=== PATIENT | male | born 1985 | race Hispanic/Latino ===

== ENCOUNTER 2017-09-18 06:52 | Emergency (ER) | payer SELFPAY ==
[2017-09-18] MEDS ORDERED: NA CHLORIDE 0.9% 1,000 ML ONE (07:45)
[2017-09-18] MEDS ORDERED: ONDANSETRON 4 MG/2 ML VIAL ONE (07:45)
[2017-09-18] MEDS ORDERED: MECLIZINE HCL 12.5 MG TAB ONE (07:45)
[2017-09-18 07:49] LABS: Absolute Lymphocytes (CBC) 1.1 K/uL (0.7-4.9); Absolute Monocytes 0.4 K/uL (0.1-1.3); Absolute Neutrophil 3.2 K/uL (1.8-8.0); Basophils % 0.4 % (0-1.3); Eosinophils % 1.9 % (0-4.4); Lymphocytes % 22.4 % (15.3-44.8); MCH 28.5 pg (27.0-35.0); MCV 84.9 fL (80-100); MPV 9.7 fL (7.6-11.3); Monocytes % 7.5 % (3.3-12.3)
[2017-09-18 07:52] LABS: Urine Bacteria <20 /HPF (NONE SEEN); Urine Culture Reflex Order NOT NEEDED; Urine RBC <5 /HPF (NONE SEEN)
[2017-09-18 07:53] LABS: Urine Blood NEGATIVE (NEG); Urine Glucose NEGATIVE (NEG); Urine Protein NEGATIVE (NEG); Urine Specific Gravity 1.025 (1.005-1.030); Urine pH 6.5 (5.0-7.0)
[2017-09-18 08:10] LABS: ALT/SGPT 18 U/L (12-78); AST/SGOT 12 U/L (15-37); Albumin 3.7 g/dL (3.4-5.0); Alkaline Phosphatase 93 U/L (45-117); Amylase Level 69 U/L (25-115); BUN Blood Urea Nitrogen 11 mg/dL (7-18); Bicarbonate 26 mmol/L (21-32); Bilirubin Direct < 0.1 mg/dL (0-0.2); Bilirubin Total 0.6 mg/dL (0.2-1.0); Creatine Phosphokinase 101 U/L (39-308); Glucose Level 94 mg/dL (74-106); Lipase 168 U/L (73-393); Potassium 4.2 mmol/L (3.5-5.1); Protein, Total 7.5 g/dL (6.4-8.2); Sodium Level 140 mmol/L (136-145)
--- NOTE | 2017-09-18 08:10 | RAD REPORT ---
EXAM DESCRIPTION: CT - Head Brain Wo Cont - 09/18/2017 7:41 am CLINICAL HISTORY: Dizziness COMPARISON: None. TECHNIQUE: Computed axial tomography of the head was obtained. IV contrast was not requested. All CT scans are performed using dose optimization technique as appropriate and may include automated exposure control or mA/KV adjustment according to patient size. FINDINGS: An intracranial bleed is not seen . The ventricles are normal in caliber. No extra-axial fluid collection is noted. Fluid within the sinuses is not noted. Small amount of fluid is present the right mastoid IMPRESSION: No acute intracranial abnormality is seen. If patient's symptoms persist MRI of the bra in would be recommended. Small amount of fluid within the right mastoid may indicate an acute mastoiditis
--- NOTE | 2017-09-18 09:04 | ER ---
Nurse's Notes [facility] Name: Sebas Blakely Age: 32 yrs Sex: Male : 1985 Arrival Date: 09/18/2017 Time: 06:53 Bed 19 Private MD: Diagnosis: Vertigo Presentation: 09/18 07:05 Presenting complaint: Patient states: woke up feeling dizzy this morning at 0600. 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 denies adamson, body ache, denies etoh use. Transition of care: patient was not received from another setting of care. Onset of symptoms was September 18, 2017 at 06:00. Risk Assessment: Do you want to hurt yourself or someone else? Patient reports no desire to harm self or others. Initial Sepsis Screen: Does the patient meet any 2 criteria? No. Patient's initial sepsis screen is negative. Does the patient have a suspected source of infection? No. Patient's initial sepsis screen is negative. Care prior to arrival: None. 07:05 Method Of Arrival: Ambulatory 07:05 Acuity: ANTONIO 3 Triage Assessment: 07:07 General: Appears in no apparent distress. uncomfortable, Behavior is calm, cooperative, ch appropriate for age. Historical: - Allergies: 07:07 No Known Allergies; - Home Meds: 07:07 None [Active]; ch - PMHx: 07:07 None; ch - PSHx: 07:07 None; - Immunization history:: Adult Immunizations up to date. - Social history:: Smoking status: Patient/guardian denies using tobacco. - Ebola Screening: : Patient negative for fever greater than or equal to 101.5 degrees Fahrenheit, and additional compatible Ebola Virus Disease symptoms Patient denies exposure to infectious person Patient denies travel to an Ebola-affected area in the 21 days before illness onset No symptoms or risks identified at this time. Screenin:11 Abuse screen: Denies threats or abuse. Denies injuries from another. Nutritional screening: No deficits noted. Tuberculosis screening: No symptoms or risk factors identified. Fall Risk None identified. Assessment: 09:01 Reassessment: Patient appears in no apparent distress at this time. Patient and/or ch family updated on plan of care and expected duration. Pain level reassessed. Patient is alert, oriented x 3, equal unlabored respirations, skin warm/dry/pink. Patient states feeling better. Patient states symptoms have improved. General: Appears in no apparent distress. comfortable, Behavior is calm, cooperative, appropriate for age. Pain: Denies pain. Neuro: No deficits noted. Respiratory: Airway is patent Respiratory effort is even, unlabored. 09:17 Reassessment: Patient appears in no apparent distress at this time. Patient and/or family updated on plan of care and expected duration. Pain level reassessed. Patient is alert, oriented x 3, equal unlabored respirations, skin warm/dry/pink. Patient denies pain at this time. Patient states feeling better. Patient states symptoms have improved. Vital Signs: 07:07 BP 115 / 76; Pulse 74; Resp 14; Temp 97.6; Pulse Ox 99% on R/A; Weight 77.11 kg; Height 5 ft. 4 in. (162.56 cm); Pain 0/10; 07:08 BP 115 / 76 LA Supine (auto/lg); Pulse 84; Resp 16; ch 07:10 BP 123 / 89 LA Sitting (auto/); Pulse 87; ch 07:11 BP 129 / 85 LA Standing (auto/); Pulse 91; ch 09:01 BP 123 / 88; Pulse 81; Resp 18; Temp 98.3; Pulse Ox 97% on R/A; Pain 0/10; ch 07:07 Body Mass Index 29.18 (77.11 kg, 162.56 cm) ED Course: 06:53 Patient arrived in ED. am2 07:05 Josué Mcmullen PA is PHCP. [facility] 07:05 Jt Mcallister MD is Attending Physician. [facility] 07:05 Ophelia Gr, BEN is Primary Nurse. ch 07:06 Triage completed. ch 07:07 Arm band placed on left wrist. Patient placed in an exam room, on a stretcher, on pulse oximetry. 07:11 No apparent distress. Resting quietly. ch 07:11 Patient has correct armband on for positive identification. Placed in gown. Bed in low ch position. Call light in reach. Side rails up X 1. Adult w/ patient. 07:11 No provider procedures requiring assistance completed. ch 07:[address] via wheelchair. vr 07:39 CT completed. Patient tolerated procedure well. Patient moved back from CT. vr 07:41 CT Head Brain wo Cont In Process Unspecified. EDMS 07:42 Initial lab(s) drawn, by me, sent to lab. Urine collected: clean catch specimen, clear. mh5 Inserted saline lock: 22 gauge in right antecubital area, using aseptic technique. Blood collected. 07:43 Warm blanket given. Pulse ox on. NIBP on. mh5 07:43 Patient has correct armband on for positive identification. Placed in gown. Bed in low mh5 position. Call light in reach. Side rails up X 1. 07:44 Urine Dipstick--Ancillary (enter results) Sent. mh5 07:44 CPK Sent. mh5 07:44 Amylase, Serum Sent. mh5 07:45 Basic Metabolic Panel Sent. mh5 07:45 CBC with Diff Sent. mh5 07:45 Creatinine for Radiology Sent. mh5 07:45 Hepatic Function Sent. mh5 07:45 Lipase Sent. mh5 07:45 Urine Microscopic Only Sent. mh5 09:01 IV discontinued, intact, bleeding controlled, No redness/swelling at site. Pressure ch dressing applied. 09:03 Tarik English MD is Referral Physician. [facility] Administered Medications: 07:48 Drug: Meclizine 50 mg Route: PO; ch 09:20 Follow up: Response: No adverse reaction; Marked relief of symptoms ch 09:21 Follow up: Response: No adverse reaction; Marked relief of symptoms ch 07:48 Drug: NS 0.9% 1000 ml Route: IV; Rate: 1 bolus; Site: right antecubital; ch 09:19 Follow up: IV Status: Completed infusion; IV Intake: 1000ml ch 09:20 Not Given (Patient Refused; pt states he is not nausous): Zofran 4 mg IVP once; over 2 ch minutes Intake: 09:19 IV: 1000ml; Total: 1000ml. Outcome: 09:04 Discharge ordered by . [facility] 09:17 Discharged to home ambulatory, with family. 09:17 Condition: improved 09:17 Discharge instructions given to patient, family, Instructed on discharge instructions, follow up and referral plans. medication usage, Demonstrated understanding of instructions, follow-up care, medications, Prescriptions given X 1. 09:18 Patient left the ED. ch Signatures: Dispatcher [employer] EDTino Liconaina, BEN RN Josué Vera PA PA jmm Davis, Victoria vr Martinez, Maria [facility] Rabia Armstrong formerly [facility]
--- NOTE | 2017-09-18 09:04 | EDPHYS ---
Physician Documentation [facility] Name: Sebas Blakely Age: 32 yrs Sex: Male : 1985 Arrival Date: 09/18/2017 Time: 06:53 Bed 19 Private MD: ED Physician Jt Mcallister HPI: 09/18 07:13 This 32 yrs old Male presents to ER via Ambulatory with complaints of [facility] Dizziness. 07:13 The patient presents with sense of spinning. Onset: The symptoms/episode began/occurred jmm acutely, this morning. Associated signs and symptoms: Pertinent positives: EAR ACHE. This is a 32 year old male with no chronic medical conditions that presents to the ED with acute onset dizziness beginning this morning. 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 Patient also admits to a bilateral earache beginning yesterday. Patient denies chest pain or SOB. Denies fever. Historical: - Allergies: 07:07 No Known Allergies; ch - Home Meds: 07:07 None [Active]; ch - PMHx: 07:07 None; ch - PSHx: 07:07 None; ch - Immunization history:: Adult Immunizations up to date. - Social history:: Smoking status: Patient/guardian denies using tobacco. - Ebola Screening: : Patient negative for fever greater than or equal to 101.5 degrees Fahrenheit, and additional compatible Ebola Virus Disease symptoms Patient denies exposure to infectious person Patient denies travel to an Ebola-affected area in the 21 days before illness onset No symptoms or risks identified at this time. ROS: 07:15 Constitutional: Negative for fever. jmm 07:15 Cardiovascular: Negative for chest pain. 07:15 Respiratory: Negative for shortness of breath. 07:15 Abdomen/GI: Negative for abdominal pain. 07:15 Neuro: Positive for dizziness. 07:15 All other systems are negative. Exam: 07:15 Head/Face: atraumatic. jmm 07:15 Constitutional: The patient appears in no acute distress, alert, awake. 07:15 Eyes: Nystagmus: 07:15 Neck: ROM/movement: is normal. 07:15 Cardiovascular: Rate: normal, Rhythm: regular. 07:15 Respiratory: the patient does not display signs of respiratory distress, Respirations: normal, Breath sounds: are clear throughout. 07:15 Musculoskeletal/extremity: ROM: intact in all extremities. 07:15 Skin: Appearance: Color: normal in color. 07:15 Neuro: Orientation: is normal, Mentation: is normal, Memory: is normal, Cerebellar function: normal finger to nose testing, Gait: is steady. 07:15 Psych: Behavior/mood is pleasant, cooperative. Vital Signs: 07:07 BP 115 / 76; Pulse 74; Resp 14; Temp 97.6; Pulse Ox 99% on R/A; Weight 77.11 kg; Height ch 5 ft. 4 in. (162.56 cm); Pain 0/10; 07:08 BP 115 / 76 LA Supine (auto/lg); Pulse 84; Resp 16; ch 07:10 BP 123 / 89 LA Sitting (auto/); Pulse 87; ch 07:11 BP 129 / 85 LA Standing (auto/); Pulse 91; ch 09:01 BP 123 / 88; Pulse 81; Resp 18; Temp 98.3; Pulse Ox 97% on R/A; Pain 0/10; ch 07:07 Body Mass Index 29.18 (77.11 kg, 162.56 cm) ch MDM: 07:11 Patient medically screened. [facility] 09:02 Data reviewed: vital signs, nurses notes, lab test result(s), radiologic studies, CT [facility] scan. Counseling: I had a detailed discussion with the patient and/or guardian regarding: the historical points, exam findings, and any diagnostic results supporting the discharge/admit diagnosis, the presence of at least one elevated blood pressure reading (>120/80) during this emergency department visit, lab results, radiology results, the need for outpatient follow up, to return to the emergency department if symptoms worsen or persist or if there are any questions or concerns that arise at home. Response to treatment: the patient's symptoms have resolved after treatment. ED course: Patient has normal cerebellar exam, I do not currently suspect CVA, patient is encouraged to follow up with Neurology for further evaluation. Patient advised to return to the ED if symptoms worsen. . 09/18 07:12 Order name: Amylase, Serum; Complete Time: 08:23 [facility] 09/18 07:12 Order name: Basic Metabolic Panel; Complete Time: 08:23 [facility] 09/18 07:12 Order name: CBC with Diff; Complete Time: 07:59 [facility] 09/18 07:12 Order name: Creatinine for Radiology; Complete Time: 08:23 [facility] 09/18 07:12 Order name: Hepatic Function; Complete Time: 08:23 [facility] 09/18 07:12 Order name: Lipase; Complete Time: 08:23 [facility] 09/18 07:12 Order name: Urine Microscopic Only; Complete Time: 07:53 [facility] 09/18 07:12 Order name: IV Saline Lock; Complete Time: 07:45 [facility] 09/18 07:12 Order name: CPK; Complete Time: 08:23 [facility] 09/18 07:12 Order name: CT Head Brain wo Cont; Complete Time: 08:23 [facility] 09/18 07:35 Order name: Urine Dipstick--Ancillary (enter results); Complete Time: 07:53 09/18 07:12 Order name: Labs collected and sent; Complete Time: 07:45 [facility] 09/18 07:12 Order name: Urine Dipstick-Ancillary (obtain specimen); Complete Time: 07:45 [facility] Administered Medications: 07:48 Drug: Meclizine 50 mg Route: PO; ch 09:20 Follow up: Response: No adverse reaction; Marked relief of symptoms ch 09:21 Follow up: Response: No adverse reaction; Marked relief of symptoms ch 07:48 Drug: NS 0.9% 1000 ml Route: IV; Rate: 1 bolus; Site: right antecubital; ch 09:19 Follow up: IV Status: Completed infusion; IV Intake: 1000ml ch 09:20 Not Given (Patient Refused; pt states he is not nausous): Zofran 4 mg IVP once; over 2 ch minutes Disposition: 09/19 01:18 Co-signature as Attending Physician, Jt Mcallister MD I agree with the assessment and tw4 plan of care. Disposition: 09/18/17 09:04 Discharged to Home. Impression: Vertigo. - Condition is Stable. - Discharge Instructions: Benign Positional Vertigo, Vertigo. - Prescriptions for Meclizine 25 mg Oral Tablet - take 1 tablet by ORAL route every 8 hours As needed; 30 tablet. - Work release form, Medication Reconciliation Form, Thank You Letter, Antibiotic Education, Prescription Opioid Use form. - Follow up: Tarik English MD; When: 2 - 3 days; Reason: Continuance of care. Signatures: Dispatcher [employer] Ophelia Mercado, RN RN Josué Vera PA PA jmm Wadley, Terrence, MD MD tw4 Corrections: (The following items were deleted from the chart) 09/18 09:18 09:04 09/18/2017 09:04 Discharged to Home. Impression: Vertigo. Condition is Stable. ch Forms are Medication Reconciliation Form, Thank You Letter, Antibiotic Education, Prescription Opioid Use. Follow up: Tarik English; When: 2 - 3 days; Reason: Continuance of care. trevor
== END 2017-09-18 09:18 | disposition home or self-care (01) ==
LOC: ER 06:52
DX: R42 Dizziness and giddiness (principal)
CPT/HCPCS: 36415; 70450; 80048; 80076; 81003; 81015; 82150; 82550; 83690; 85025; 96360; 96361; 99284; J2405; J7030